=== PATIENT | male | born 2000 | race Two or more races ===

== ENCOUNTER 2024-04-05 21:10 | Emergency (ER) | payer MEDICAID, SELFPAY ==
[2024-04-05 21:11] VITALS: BMI 27.3
[2024-04-05 21:36] VITALS: BP 140/89; PULSE 98; RESP 18; TEMP 36.9; O2SAT 99
--- NOTE | 2024-04-05 21:45 | PD.EDRME ---
Rapid Medical Screening Exam E Arrival date/time: 04/05/24 21:10 23M with no significant PMH presents to ED with alcohol intoxication. Patient states he has nowhere else to go and no one to take him in. Chief Complaint: Alcohol Vital signs: Vital Signs Temperature 98.5 F 04/05/24 21:36 Pulse Rate 98 04/05/24 21:36 Respiratory Rate 18 04/05/24 21:36 Blood Pressure 140/89 H 04/05/24 21:36 Pulse Oximetry (%) 99 04/05/24 21:36 Oxygen Delivery Method Room Air 04/05/24 21:36
--- NOTE | 2024-04-05 23:06 | PD.EDALCOH ---
ED Alcohol RME/HPI General Chief Complaint: Alcohol Stated Complaint: ETOH INTOXICATED Arrival date/time: 04/05/24 21:10 Limitations: no limitations RME / HPI RME / HPI narrative: 04/05/24 21:10 23M with no significant PMH presents to ED with alcohol intoxication. Patient states he has nowhere else to go and no one to take him in. -------- Dr. Carballo'melvin Main ED Evaluation: 23yo male with no significant past medical history JALEN presents to the ED for a chief complaint of alcohol intoxication. Patient states he's been drinking tonight and does not have a place to stay, so he came here to the ED. He denies any falls or injuries. He denies any headache, chest pain, shortness of breath or any other associated symptoms. No known allergies. Related Data Previous Rx's ?Medication ?Instructions ?Recorded ibuprofen 800 mg tablet (IBU) 800 mg PO Q8H #20 tabs 11/20/23 Allergies Allergy/AdvReac Type Severity Reaction Status Date / Time No Known Allergies Allergy Verified 07/15/19 18:40 Review of Systems Review of Systems Systems Reviewed: All systems reviewed, normal except as documented Past Medical History Past Medical History CARDIAC: Negative Congestive Heart Failure RESPIRATORY: Negative Chronic Obstructive Pulmonary Disease (COPD) GENITOURINARY: Negative Renal Disease ENDOCRINE: Positive Diabetes Mellitus Type 2; Negative Diabetes Mellitus Type 1 Social History SMOKING STATUS: Never smoker SUBSTANCE USE: marijuana ED Exam General Limitations: Present no limitations General appearance: Present alert and in no apparent distress Head Head exam: Present atraumatic Eye Eye exam: Present normal appearance, PERRL and EOMI ENT ENT exam: Present normal exam, normal oropharynx and mucous membranes moist Neck Neck exam: Present normal inspection, full ROM and trachea midline Chest Chest inspection: Present normal inspection and symmetric chest wall rise Respiratory Respiratory exam: Present normal lung sounds bilaterally Cardiovascular Cardiovascular exam: Present regular rate, normal rhythm and normal heart sounds Abdominal Exam Abdominal exam: Present soft and normal bowel sounds Extremities Exam Extremities exam: Present normal inspection and full ROM Back Exam Back exam: Present normal inspection and full ROM Neurological Exam Neurological exam: Present alert, oriented X3 and CN II-XII intact Psychiatric Psychiatric exam: Present normal affect and normal mood Skin Skin exam: Present warm, dry, intact and normal color Course Course Course Narrative: 0350: Patient is alert, awake, and walking around. Patient is stable to be discharged home. Quality Measures none Orders Category Date Time Status Rigid cervical collar PRN Care 04/06/24 00:22 Active Vital Signs Vital signs: Vital Signs Temperature 98.5 F 04/05/24 21:36 Pulse Rate 98 04/05/24 21:36 Respiratory Rate 18 04/05/24 21:36 Blood Pressure 140/89 H 04/05/24 21:36 Pulse Oximetry (%) 99 04/05/24 21:36 Oxygen Delivery Method Room Air 04/05/24 21:36 Pulse ox is 99% on room air, which is normal according to my interpretation. Discharge Plan Plan Patient Disposition: HOME (Self Care) Patient condition on transfer: Stable Prescriptions/Referrals Prescriptions/Med Rec: No Action ibuprofen [IBU] 800 mg tablet 800 mg PO Q8H Qty: 20 0RF Referrals: No Primary/Family,Physician [Primary Care Provider] - In 1 week Problem List Clinical Impression: Alcoholic intoxication Patient/Caregiver Discharge Instructions Education Materials: Social Drinking vs Problem Drinking Additional Instructions: Please return to the emergency department for any worsening symptoms, or any other concerns. Print Language: Romansh Stand Alone Forms: [employer] Patient Portal Info Letter Alcohol Patient data External records reviewed:: [facility] previous records (Per chart review, patient was seen here on 11/20/23 for a closed head injury.) Clinical information provided by:: patient Social determinants that could affect healthcare access:: alcohol use Patient has the following chronic illnesses:: DMII How is presenting disease/condition affected by chronic disease/condition?: uneffected by Evaluation data The following diagnostics were reviewed and interpreted by me:: other (specify) (none) Lab and/or radiology exams considered but not ordered:: Labs considered, but not indication at this time. Interpretation Summary: none Medications / Prescriptions Medications or Prescriptions considered but not ordered:: none Medication administrations:: none Consultations Consultation(s) initiated? (list below): No Diagnosis Differential diagnosis alcohol: alcohol intoxication and other (homelessness, dehydration) Most likely diagnosis given after review of the tests above:: alcohol intoxication Admission Indicated Admission indicated?: not indicated Admission Request Was there a request for admission?: No Disposition Plan Disposition Plan: Discharge Discharge Attestation Discharge Attestation: The patient and all family members were given an opportunity to ask questions and understood the discharge instructions. Discharge instructions specifically effects, indications for sooner follow up or return to the emergency department, and the expected course of current diagnosis. Patient condition: Stable
--- NOTE | 2024-04-06 01:41 | PC.NURSE ---
Pt woke up and ambulated to restroom independently with steady gait. Pt states he does not have a ride home and would have to walk.
[2024-04-06 06:09] VITALS: PULSE 85; RESP 17; O2SAT 99
== END 2024-04-06 06:18 | disposition home or self-care (01) ==
PROVIDERS: Emergency Provider Emergency Medicine
DX: F10.129 Alcohol abuse with intoxication, unspecified (principal); E11.9 Type 2 diabetes mellitus without complications
CPT/HCPCS: 99283

== ENCOUNTER 2024-05-31 19:20 | Emergency (ER) | payer MEDICAID, SELFPAY ==
--- NOTE | 2024-05-31 19:27 | EDNOTE_ITS ---
ED Medical Clearance RME/HPI General Chief complaint: Medical Clearance Stated complaint: MEDICAL CLEARANCE Time Seen by Provider: 05/31/24 19:24 Source: patient and police Arrival date/time: 05/31/24 19:20 Mode of arrival: ambulatory Limitations: no limitations RME / HPI RME / HPI Narrative: Dr. Reid?s Main ED Evaluation: A 23-year-old male with a known history of hypertension was brought to the emergency department by law enforcement for medical clearance prior to incarceration. According to the police report, the patient had a blood pressure reading of 186/130, prompting transport to the hospital. The patient confirms a history of hypertension but admits to noncompliance with medication regimen. He denies any current medical complaints. He also denies any pain or discomfort at this time. Related Information Previous Rx's ?Medication ?Instructions ?Recorded ibuprofen 800 mg tablet (IBU) 800 mg PO Q8H #20 tabs 0 11/20/23 Allergies Allergy/AdvReac Type Severity Reaction Status Date / Time No Known Allergies Allergy Verified 07/15/19 18:40 Review of Systems Review of Systems Systems Reviewed: All systems reviewed, normal except as documented Past Medical History Past Medical History CARDIAC: Negative Congestive Heart Failure RESPIRATORY: Negative Chronic Obstructive Pulmonary Disease (COPD) GENITOURINARY: Negative Renal Disease ENDOCRINE: Positive Diabetes Mellitus Type 2; Negative Diabetes Mellitus Type 1 Social History SMOKING STATUS: Never smoker SUBSTANCE USE: marijuana ED Exam Narrative Physical exam: GENERAL APPEARANCE: alert and oriented x 4, well-developed, well-nourished, no acute distress VITALS: All vitals were reviewed and the pulse ox is 95% on room air, which is normal according to my interpretation. HEENT: Normocephalic, atraumatic; pupils equal, round, reactive to light; EOMI; mucous membranes pink, moist; oropharynx clear NECK: Supple LUNGS: CTABL; no wheezes, no rales, no rhonchi HEART: Regular rate, regular rhythm; normal S1, S2; no murmurs ABDOMEN: non distended; normal BS; soft, no tenderness, no guarding, no rebound; no masses, no organomegaly, no hernia BACK: no CVA tenderness EXTREMITIES: atraumatic; no edema NEUROLOGIC: awake; alert and oriented x4; cranial nerves II-XII grossly intact; no focal sensory or motor deficits PSYCHIATRIC: appropriate mood and affect SKIN: warm, dry, normal color; no rashes General Limitations: Present no limitations Course Quality Measures none Reevaluation(s) Reevaluation #1: The patient was re-evaluated and provided additional history. He reports some marijuana use and occasional alcohol consumption but denies any use of illicit drugs. He confirms a history of untreated hypertension. The patient states that law enforcement insinuated he was not being truthful, which he feels caused him to become increasingly anxious. Time: 20:15 Vital Signs Vital signs: Vital Signs Temperature 98.1 F 05/31/24 19:33 Pulse Rate 135 H 05/31/24 19:33 Respiratory Rate 21 H 05/31/24 19:33 Blood Pressure 178/117 H 05/31/24 19:33 Pulse Oximetry (%) 95 05/31/24 19:33 Oxygen Delivery Method Room Air 05/31/24 19:33 Medical Clearance MDM Narrative MDM Narrative:: Scribe Attestation: IChristen, am scribing for and in the presence of Dr. Reid. Provider Notation: Although this document has been carefully reviewed, there may still be some phonetic and other typographical errors. These errors are purely grammatical due to imperfections in the software program and should not be construed in any way to compromise the substance of the patient's medical care during this visit. Patient data External records reviewed:: [facility] previous records Clinical information provided by:: patient and law enforcement Social determinants that could affect healthcare access:: none (alcohol use, drug use) Patient has the following chronic illnesses:: HTN How is presenting disease/condition affected by chronic disease/condition?: exacerbated by Evaluation data The following diagnostics were reviewed and interpreted by me:: other (specify) (none) Lab and/or radiology exams considered but not ordered:: n/a Interpretation Summary: n/a Medications / Prescriptions Medications or Prescriptions considered but not ordered:: None Medication administrations:: As above, if any Consultations Consultation(s) initiated? (list below): No Diagnosis Medical Clearance Differential Diagnosis: other (Hypertension, Hypertensive urgency, Hypertensive emergency) Most likely diagnosis given after review of the tests above:: See clinical impression Admission Indicated Admission indicated?: not indicated Admission Request Was there a request for admission?: No Disposition Plan Disposition Plan: Discharge Discharge Attestation Discharge Attestation: The patient and all family members were given an opportunity to ask questions and understood the discharge instructions. Discharge instructions specifically effects, indications for sooner follow up or return to the emergency department, and the expected course of current diagnosis. Patient condition: Stable Discharge Plan Plan Patient Disposition: HOME (Self Care) Disposition Comment: Stable for discharge Patient condition on transfer: Stable Prescriptions/Referrals Prescriptions/Med Rec: No Action ibuprofen [IBU] 800 mg tablet 800 mg PO Q8H Qty: 20 0RF Referrals: [facility] [Outside] - In 1 week Problem List Clinical Impression: Benign essential hypertension Patient/Caregiver Discharge Instructions Discharge Activity: activity as tolerated Education Materials: Controlling High Blood Pressure, ED High Blood Pressure ... Additional Instructions: Please return to the emergency department for any worsening or any further medical problems Otherwise you should follow-up with your primary care doctor or in the [facility] clinic within the next several days Is very important that you take high blood pressure medicine daily. You can have this your primary care doctor in order to get a prescription for that. Print Language: Tajik Stand Alone Forms: [employer]., Patient Portal Info Letter
[2024-05-31 19:33] VITALS: BP 178/117; PULSE 135; RESP 21; TEMP 36.7; O2SAT 95
[2024-05-31 20:27] VITALS: BP 188/106; PULSE 65; RESP 18; O2SAT 96
== END 2024-05-31 20:59 | disposition home or self-care (01) ==
PROVIDERS: Emergency Provider Emergency Medicine
DX: Z02.89 Encounter for other administrative examinations (principal); I10 Essential (primary) hypertension; Z91.148 Patient's other noncompliance with medication regimen for other reason
CPT/HCPCS: 99281